=== PATIENT | male | born 1940 | race Caucasian/White ===

== ENCOUNTER 2017-02-10 12:01 | Emergency (ER) | payer MEDICARE, OTHER ==
[~2017-02-10] VITALS: Ht 180.3 cm; Wt 80.9 kg
[2017-02-10] MEDS ORDERED: SODIUM CHLORIDE 0.9% 1,000 ML IV ONE (12:34)
[2017-02-10] MEDS ORDERED: MECLIZINE CHEWABLE 25 MG TAB ONE (12:46)
[2017-02-10] MEDS ORDERED: SODIUM CHLORIDE FLUSH 10ML SYR IVF ONE (13:00)
[2017-02-10] MEDS ORDERED: MECLIZINE CHEWABLE 25 MG TAB PO ONE (13:00)
[2017-02-10 13:02] LABS: HEMATOCRIT 38.9 % (39.2-51.8); HEMOGLOBIN 13.1 g/dL (13.7-18.0); WHITE BLOOD COUNT 6.2 x10^3/uL (3.4-10)
[2017-02-10 13:14] LABS: BLOOD UREA NITROGEN 11 mg/dL (7-18)
[2017-02-10] MEDS ORDERED: SIMV80TA3 PO (13:33)
[2017-02-10] MEDS ORDERED: OMNIPAQUE 350 MG/ML, 100ML BOTTLE ONE (14:47)
[2017-02-10] MEDS ORDERED: SODIUM CHLORIDE 0.9%, 500ML IVBOLUS ONE (15:30)
[2017-02-10 16:22] VITALS: BP 161/71
== END 2017-02-10 16:23 | disposition home or self-care (01) ==
LOC: ED 13:50
DX: H81.10 Benign paroxysmal vertigo, unspecified ear (principal); I10 Essential (primary) hypertension; E11.9 Type 2 diabetes mellitus without complications; Z79.82 Long term (current) use of aspirin
CPT/HCPCS: 36415; 70450; 70496; 70498; 80048; 82040; 83735; 85025; 93005; 96360; 96361; 99285; J7030; J7040; Q9967